=== PATIENT | female | born 1990 | race Caucasian/White ===

== ENCOUNTER 2016-03-29 13:20 | Outpatient (CLI) | payer OTHER ==
[~2016-03-29] VITALS: Ht 175.3 cm; Wt 117.9 kg
[~2016-03-29 13:20] MED LIST: Chromagen, Feogen, M PO; EXPLANON; FLOVENT DISKUS1 DIS2 IH; Motrin PO; NATALCARE RX1 TABLET PO; NOHOMEMEDS; Proventil,Ventolin H IH; Zithromax PO
[2016-03-29 13:55] VITALS: BP 128/81
[2016-03-29 14:39] VITALS: BP 122/70
[2016-03-29 15:50] VITALS: BP 113/68
[2016-03-29 16:41] VITALS: BP 114/77
== END 2016-03-29 18:18 | disposition home or self-care (01) ==
LOC: LDRP-OP 13:20 → 2WEST 13:21 → LDRP-OP 06-30 14:42
DX: Z03.79 Encounter for other suspected maternal and fetal conditions ruled out (principal); R10.9 Unspecified abdominal pain; V49.60XA Unspecified car occupant injured in collision with unspecified motor vehicles in traffic accident, initial encounter; Z3A.31 31 weeks gestation of pregnancy
CPT/HCPCS: 59025; G0378

== ENCOUNTER 2016-06-03 07:28 | Inpatient (IN) | payer OTHER ==
[~2016-06-03] VITALS: Ht 175.3 cm; Wt 125.5 kg
[2016-06-03] VITALS (25 sets, daily range): BP systolic 98–144; BP diastolic 53–95
[2016-06-03 09:09] LABS: EOSINOPHIL COUNT 0.1 K/uL (0-0.3); HEMATOCRIT 33.6 % (36.0-46.0); IMMATURE GRANULOCYTE (%) 0.2 % (0.0-0.7); INSTRUMENT ABS NEUTROPHIL CT 6.4 K/uL; LYMPHOCYTE COUNT 1.3 K/uL (1.0-2.8); MCH 29.1 PG (29.0-34.0); MEAN PLAT.VOLUME 10.3 uM^3 (9.5-12.4); MONOCYTE (%) 4.9 % (3-12); MONOCYTE COUNT 0.4 K/uL (0-0.8); NEUTROPHIL (%) 78.4 % (45-76); NEUTROPHIL COUNT 6.4 K/uL (1.8-6.4); PLATELET COUNT 232 K/uL (156-360); RBC DIS.WIDTH-CV 14.4 % (11.8-14.6); RBC DIS.WIDTH-SD 45.7 % (39-53); RED BLOOD COUNT 3.82 M/uL (3.80-5.20); WHITE BLOOD COUNT 8.2 K/uL (4.1-10.2)
[2016-06-03 09:33] LABS: ANION GAP 12 MEQ/L (2-14); CHLORIDE 106 MEQ/L (99-109); POTASSIUM 3.6 MEQ/L (3.7-5.4); SAMPLE HEMOLYSIS CHECK 0; SAMPLE ICTERIC CHECK 0; SAMPLE LIPEMIA CHECK 0; SODIUM 138 MEQ/L (136-147); TOTAL BILIRUBIN 0.2 MG/DL (0.0-1.0)
[2016-06-03 09:39] LABS: ALKALINE PHOSPHATASE 148 IU/L (3-129); GFR ESTIMATE (CALCULATED) > 59 mL/min/; GLUCOSE 108 mg/dL (70-99); LACTATE DEHYDROGENASE 140 IU/L (20-246); UREA NITROGEN (BUN) 7 mg/dL (9-23); URIC ACID 3.6 mg/dL (3.1-9.2)
[2016-06-04 03:04] VITALS: BP 118/65
[2016-06-04 04:59] LABS: EOSINOPHIL (%) 0.4 % (0-5); HEMATOCRIT 30.3 % (36.0-46.0); IMMATURE GRANULOCYTE (%) 0.3 % (0.0-0.7); INSTRUMENT ABS NEUTROPHIL CT 6.7 K/uL; MCH 29.1 PG (29.0-34.0); MCHC 33.3 G/DL (30.0-36.0); MCV 87.3 FL (83-99); MEAN PLAT.VOLUME 10.1 uM^3 (9.5-12.4); MONOCYTE (%) 5.9 % (3-12); MONOCYTE COUNT 0.6 K/uL (0-0.8); NEUTROPHIL (%) 71.6 % (45-76); NEUTROPHIL COUNT 6.7 K/uL (1.8-6.4); PLATELET COUNT 192 K/uL (156-360); RBC DIS.WIDTH-CV 14.1 % (11.8-14.6); RBC DIS.WIDTH-SD 44.2 % (39-53); RED BLOOD COUNT 3.47 M/uL (3.80-5.20); WHITE BLOOD COUNT 9.4 K/uL (4.1-10.2)
[2016-06-04 08:44] VITALS: BP 127/83
[2016-06-04 12:07] VITALS: BP 137/83
[2016-06-04 15:08] VITALS: BP 123/75
[2016-06-04 19:38] VITALS: BP 134/80
[2016-06-04 22:22] VITALS: BP 134/83
[2016-06-05 02:29] VITALS: BP 107/57
[2016-06-05 08:45] VITALS: BP 126/84
[2016-06-05] MEDS ORDERED: IBUPROFEN800 MG PO (11:10)
== END 2016-06-05 13:06 | disposition home or self-care (01) | DRG 775 ==
LOC: LDRP-OP 07:28 → 2WEST 07:29 → LDRP-OP 12:22 → 2WEST 17:11 → LDRP-OP 06-30 18:34
PROVIDERS: Advanced Practice Midwife
PROC: 00HU33Z Insertion of Infusion Device into Spinal Canal, Percutaneous Approach (ICD-10-PCS; principal; 2016-06-03)
PROC: 3E0R3CZ (ICD-10-PCS; principal; 2016-06-03)
PROC: 10907ZC Drainage of Amniotic Fluid, Therapeutic from Products of Conception, Via Natural or Artificial Opening (ICD-10-PCS; principal; 2016-06-03)
PROC: 0U7C7DZ Dilation of Cervix with Intraluminal Device, Via Natural or Artificial Opening (ICD-10-PCS; principal; 2016-06-03)
PROC: 10E0XZZ Delivery of Products of Conception, External Approach (ICD-10-PCS; principal; 2016-06-03)
PROC: 3E033VJ Introduction of Other Hormone into Peripheral Vein, Percutaneous Approach (ICD-10-PCS; principal; 2016-06-03)
DX: O69.1XX0 Labor and delivery complicated by cord around neck, with compression, not applicable or unspecified (principal); Z37.0 Single live birth; Z3A.40 40 weeks gestation of pregnancy; O99.214 Obesity complicating childbirth; E66.9 Obesity, unspecified; Z68.36 Body mass index [BMI] 36.0-36.9, adult
CPT/HCPCS: 80053; 81003; 82570; 83615; 84156; 84550; 85025; C1755; J3010